=== PATIENT | male | born 1990 | race Caucasian/White ===

== ENCOUNTER 2020-07-01 13:16 | Emergency (ER) | payer OTHER, SELFPAY ==
[2020-07-01] VITALS (8 sets, daily range): BP systolic 124–153; BP diastolic 66–84; PULSE 60–77; RESP 12–20; TEMP 36.4; O2SAT 96–100
--- NOTE | ~2020-07-01 | CT_ITS ---
EXAMINATION: CT brain wo con EXAM DATE: 07/01/2020 14:15 INDICATION: Syncope. TECHNIQUE: Spiral CT of the head was performed without contrast. Axial, coronal and sagittal images were reviewed. The dose-length product (DLP) for this examination was 605.33 mGy-cm. The exposure w as tailored according to patient size, and iterative reconstruction (ASIR) was used as additional dos e reduction technique. There is no prior study for comparison. FINDINGS: There is no acute intraparenchymal hemorrhage. No evidence of intraparenchymal brain mass lesion. No evidence of acute infarction. There is no mass effect or midline shift. The ventricles are normal in size. There are no extra-axial collections. There are no acute calvarial fractures. T he orbits are unremarkable. Soft tissue is unremarkable. The visualized sinuses and mastoid air claudia ls are well aerated. IMPRESSION: 1. Normal head CT examination. Reviewed, dictated and finalized at location A. 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
--- NOTE | 2020-07-01 13:51 | ECG_ITS ---
Measurements Intervals [place] Rate: 55 P: 19 WA: 150 QRS: 62 QRSD: 100 T: 39 QT: 409 QTc: 393 Interpretive Statements SINUS BRADYCARDIA BORDERLINE ECG Electronically Signed On 07-01-2020 18:13:44 [facility] by Levy Sommers D.O.
--- NOTE | 2020-07-01 13:56 | ED.SYNCOPE ---
HPI - Syncope General Chief Complaint: Syncope Stated Complaint: syncope after head injury Time Seen by Provider: 07/01/20 13:32 Source: patient Mode of arrival: ambulatory Limitations: no limitations History of Present Illness HPI narrative: Patient is a 29-year-old male complaining of a syncopal episode x4 yesterday at a bar. Patient admits to hitting his head on the ground after the syncopal episode, does admit to having a few drinks at the bar when this happened. Patient complaining of headache generalized, 6 out of 10, dull, aching, nonradiating that started today. Patient denies any syncopal episodes today. Patient states that he has a history of syncopal episodes in the past starting in 2010, would suddenly occur, unknown reasons, he could be sitting down or standing up does not matter. Patient denies any neck pain, back pain, chest pain, bowel pain, nausea, vomiting, fever or chills. Patient denies any dizziness, speech or visual disturbance, weakness, numbness, incontinence or fever. Related Data Home Medications Medication Instructions Recorded Confirmed No Home Medications 07/01/20 07/01/20 Allergies Allergy/AdvReac Type Severity Reaction Status Date / Time aspirin Allergy Unknown Unknown Verified 07/01/20 13:25 calcium carbonate Allergy Unknown Unknown Verified 07/01/20 13:25 naproxen Allergy Unknown Unknown Verified 07/01/20 13:25 Review of Systems Review of Systems: All systems reviewed & are unremarkable except as noted in HPI and below Constitutional: Constitutional: Denies body ache(s), Denies chills, Denies excessive sweating, Denies fatigue, Denies fever(s), Denies headache(s), Denies lethargy, Denies malaise, Denies weakness and Denies weight loss Eyes: Eyes: Denies blurry vision, Denies change in vision and Denies loss of vision ENT: Denies dizziness, Denies ear discharge, Denies headache(s), Denies lip swelling, Denies epistaxis, Denies nasal congestion, Denies neck pain, Denies throat swelling and Denies tongue swelling Cardiovascular: Cardiovascular: Denies chest pain, Denies chest pain at rest, Denies chest pain with activity, Denies diaphoresis, Denies rapid heart rate, Denies edema, Denies irregular heart rhythm, Denies lightheadedness, Denies palpitations, Denies dyspnea and Denies dyspnea on exertion Respiratory: Respiratory: Denies chest congestion, Denies cough, Denies hemoptysis, Denies dyspnea and Denies dyspnea on exertion Gastrointestinal: Gastrointestinal: Denies abdominal pain, Denies melena, Denies hematochezia, Denies diarrhea, Denies nausea, Denies vomiting and Denies hematemesis Musculoskeletal: Musculoskeletal: Denies abnormal gait, Denies deformity, Denies joint swelling, Denies limited range of motion, Denies neck pain and Denies numbness Neurologic: Denies Abnormal speech present, Denies abnormal gait, Denies confusion, Denies dizziness, Denies headache(s), Denies focal weakness, Denies loss of vision, Denies numbness, Denies Other visual disturbances, Denies Sensory deficit (Neuro) and Denies weakness Psychiatric: Psychiatric: Denies confusion, Denies depression, Denies auditory hallucinations, Denies homicidal ideation and Denies suicidal ideation Endocrine: Endocrine: Denies cold intolerance, Denies excessive sweating, Denies fatigue, Denies heat intolerance and Denies palpitations Hematologic/Lymphatic: Hematologic/Lymphatic: Denies easy bleeding and Denies easy bruising Allergic/Immunologic: Allergic/Immunologic: Denies lip swelling, Denies throat swelling and Denies tongue swelling PMFSH Social History Social History Gender identity (if verbalized by the patient): Male Comments Past medical history: None Surgical history: None Family history noncontributory Social history: Non-smoker no EtOH or drug use. Exam Const: General: cooperative, healthy appearing, comfortable, no acute distress, well developed, alert
[2020-07-01 14:45] LABS: Basophils Percent Auto 0.3 % (0.2-1.2); Eosinophils Absolute Auto 0.1 K/mm3 (0-0.3); Eosinophils Percent Auto 1.2 % (0-4.4); Hematocrit 43.5 % (42.0-52.0); Hemoglobin 14.8 g/dL (14.0-18.0); Immature Granulocyte Absolute 0.03 K/mm3 (0.00-0.031); Immature Granulocyte Percent A 0.3 % (0-0.5); Lymphocytes Absolute Auto 1.63 K/mm3 (0.9-3.2); Lymphocytes Percent Auto 17.5 % (18.3-44.2); Mean Corpuscular Hemoglobin 28.2 pg (26-34); Mean Platelet Volume 10.4 fl (7.4-10.4); Monocytes Absolute Auto 0.8 K/mm3 (0.1-0.6); Monocytes Percent Auto 8.8 % (2.6-8.5); Neutrophils Absolute Auto 6.7 K/mm3 (1.3-6.7); Neutrophils Percent Auto 71.9 % (45.5-73.1); Platelet Count Result 230 k/mm3 (150-375); Red Blood Count 5.24 M/mm3 (4.6-6.20); Red Cell Distribution Width 12.9 % (11.5-14.5); White Blood Count 9.3 K/mm3 (4.5-10.0)
[2020-07-01] MEDS: SODIUM CHLORIDE 0.9% IV 1,000 ML 999 ML IV CONT (14:50)
[2020-07-01 14:56] LABS: Anion Gap 9 mmol/L (8-16); Blood Urea Nitrogen 8 mg/dL (9-20); Calcium 9.5 mg/dL (8.4-10.2); Carbon Dioxide 28 mmol/L (22-30); Chloride 103 mmol/L (98-107); Estimated CRCL calculation 115 ml/min; Estimated Glomerular Filt Rate > 60; Glucose 97 mg/dL (75-110); Potassium 3.8 mmol/L (3.4-5.0); Sodium 140 mmol/L (137-145)
[2020-07-01 15:08] LABS: Troponin I < 0.012 ng/mL (0.000-0.034)
[2020-07-01 15:12] LABS: D Dimer 0.27 ug/mL (<0.48)
[2020-07-01] MEDS: ACETAMINOPHEN 500 MG TABLET 1000 MG PO (15:57)
== END 2020-07-01 16:31 | disposition home or self-care (01) ==
PROVIDERS: Emergency Provider Emergency Medicine
DX: R55 Syncope and collapse (principal); R00.1 Bradycardia, unspecified
CPT/HCPCS: 36415; 70450; 80048; 84484; 85025; 85380; 93005; 96360; 99284; A9270; J7030